=== PATIENT | female | born 1995 | race Caucasian/White ===

== ENCOUNTER → 2023-07-28 10:05 | Outpatient (REF) | payer BC, SELFPAY ==
[2023-07-28 11:40] LABS: % Basophils 1.1 % (0-2); % Eosinophils 2.9 % (0-6); % Immature Granulocytes 0.3 % (0-0.5); % Lymphocytes 37.7 % (20.5-51.1); % Monocytes 8.7 % (1.7-9.3); % Neutrophils 49.3 % (42.2-75.2); Absolute Basophils 0.1 10^3/uL (0-0.2); Absolute Eosinophils 0.3 10^3/uL (0-0.7); Absolute Lymphocytes 3.3 10^3/uL (1.2-3.4); Absolute Monocytes 0.8 10^3/uL (0.1-0.6); Absolute Neutrophils 4.3 10^3/uL (1.4-6.5); Hematocrit 40.6 % (37.0-47.0); Hemoglobin 14.3 g/dL (12.0-16.0); Mean Corp Hgb Conc. 35.2 g/dL (33.0-37.0); Mean Corpuscular Hgb 30.4 pg (27.0-31.0); Mean Corpuscular Volume 86.2 fL (81.0-99.0); Mean Platelet Volume 11.1 fL (7.4-10.4); Nucleated Red Blood Cells % 0 %; Platelet Count 217 10^3/uL (130-400); Red Blood Cell Count 4.71 10^6/uL (4.20-5.40); Red Cell Dist. Width 11.9 % (11.5-14.5); White Blood Cell Count 8.8 10^3/uL (4.8-10.8)
[2023-07-28 12:46] LABS: TSH Reflex To Free T4 1.19 uIU/ml (0.47-4.68)
[2023-07-28 12:47] LABS: ALT (SGPT) 28 U/L (0-35); AST (SGOT) 32 U/L (14-36); Albumin 4.7 g/dl (3.5-5.0); Alkaline Phosphatase 53 U/L (38-126); Blood Urea Nitrogen 14 mg/dl (7-17); Calcium 10.2 mg/dl (8.4-10.2); Carbon Dioxide 25 mmol/L (22-30); Chloride 105 mmol/L (98-107); Glucose 83 mg/dl (70-99); HDL Cholesterol 41 mg/dl; LDL Cholesterol, Calculated 130 mg/dl; Potassium 5.4 mmol/L (3.5-5.1); Sodium 141 mmol/L (135-145); Total Bilirubin 0.9 mg/dl (0.2-1.3); Total Cholesterol 189 mg/dl (50-199); Total Protein 7.8 g/dl (6.3-8.2); Triglyceride 91 mg/dl (10-149); Very Low Density Lipoprotein 18 mg/dl (0-30); eGFR > 60.00
== END ==
LOC: REG 10:05
PROVIDERS: ATTENDING PHYSICIAN Nurse Practitioner Adult Health
DX: Z00.00 Encounter for general adult medical examination without abnormal findings (principal); K20.0 Eosinophilic esophagitis; Z79.899 Other long term (current) drug therapy; Z13.29 Encounter for screening for other suspected endocrine disorder
CPT/HCPCS: 36415; 80053; 80061; 84443; 85025

== ENCOUNTER 2024-06-14 02:13 | Emergency (ER) | payer BC, SELFPAY ==
[2024-06-14 02:17] VITALS: BP 125/83
[2024-06-14 02:53] LABS: % Basophils 0.5 % (0-2); % Eosinophils 1.4 % (0-6); % Immature Granulocytes 0.5 % (0-0.5); % Lymphocytes 20.2 % (20.5-51.1); % Monocytes 9.5 % (1.7-9.3); % Neutrophils 67.9 % (42.2-75.2); Absolute Basophils 0.1 10^3/uL (0-0.2); Absolute Eosinophils 0.2 10^3/uL (0-0.7); Absolute Immature Granulocytes 0.1 10^3/uL (0-0.05); Absolute Lymphocytes 3.4 10^3/uL (1.2-3.4); Absolute Monocytes 1.6 10^3/uL (0.1-0.6); Absolute Neutrophils 11.5 10^3/uL (1.4-6.5); Hematocrit 37.1 % (37.0-47.0); Hemoglobin 13.4 g/dL (12.0-16.0); Mean Corp Hgb Conc. 36.1 g/dL (33.0-37.0); Mean Corpuscular Hgb 30.8 pg (27.0-31.0); Mean Corpuscular Volume 85.3 fL (81.0-99.0); Mean Platelet Volume 11.1 fL (7.4-10.4); Nucleated Red Blood Cells % 0 %; Platelet Count 181 10^3/uL (130-400); Red Blood Cell Count 4.35 10^6/uL (4.20-5.40); Red Cell Dist. Width 11.9 % (11.5-14.5)
[2024-06-14 03:07] LABS: HCG, Serum Qualitative Screen Negative
[2024-06-14 03:14] LABS: ALT (SGPT) 26 U/L (0-35); AST (SGOT) 28 U/L (14-36); Albumin 4.5 g/dl (3.5-5.0); Alkaline Phosphatase 53 U/L (38-126); Blood Urea Nitrogen 18 mg/dl (7-17); Calcium 9.7 mg/dl (8.4-10.2); Carbon Dioxide 25 mmol/L (22-30); Chloride 107 mmol/L (98-107); Glucose 96 mg/dl (70-99); Lipase 98 U/L (23-300); Potassium 4.3 mmol/L (3.5-5.1); Sodium 140 mmol/L (135-145); Total Protein 7.2 g/dl (6.3-8.2); eGFR > 60.00
[2024-06-14 03:15] VITALS: BMI 25.8
--- NOTE | 2024-06-14 03:23 | ED.GENMED ---
History of Present Illness
General
Chief Complaint: Abdominal Pain
Source: patient
Exam Limitations: none
Time Seen by Provider: 06/14/24 02:42
Nursing documentation reviewed up to this point in time: agreed with
History of Present Illness
History of Present Illness:
Pleasant 28-year-old female presents to the emergency department with right upper quadrant and epigastric abdominal pain. She states that the pain began this evening after eating dinner. She states it was nearly immediately after consuming chicken
and macaroni and cheese. Patient denies fever or chills. Patient tried multiple at home remedies including Pepto-Bismol and Gas-X without relief. Patient had nausea without vomiting. She denies diarrhea or constipation though she feels that her
stomach is bloated. She does have a history of eosinophilic esophagitis. States that this does not feel similar.
Past History
Past History
ED Past Medical History: Other (Eosinophilic esophagitis)
ED Past Surgical History: Tonsilectomy and Other (Esophageal dilatation)
Social History
Tobacco: Non-smoker
Alcohol: Other
Drug: None
Personal: Single
Living: with family
Employment: Employed
Family History
Family History: Other
Review of Systems
Review of Systems
Allergies reviewed?: Yes
All Other Systems: ROS reviewed and negative except as documented in HPI and ROS
Constitutional: Reports no symptoms
EENT: Reports no symptoms
Respiratory: Reports no symptoms
Cardiac: Reports no symptoms
ABD/GI: Reports abdominal pain and nausea; Denies vomiting, diarrhea, constipated, bloody stools or black stools
: Reports no symptoms
Musculoskeletal: Reports no symptoms
Skin: Reports no symptoms
Neurological: Reports no symptoms
Endocrine: Reports no symptoms
Hematologic/Lymphatic: Reports no symptoms
Psychiatric: Reports no symptoms
Phy Exam
General Physical Exam
General Presentation: well appearing and moderate distress
General Skin: warm and dry
General Habitus: normal
General Mental: alert
General Hydration: appears well hydrated
ENT Exam
ENT Exam: EOMI, pharynx normal, neck supple and normocephalic
Eye Exam
Eye Exam: PERRL, cornea clear and conjunctiva normal
Cardiovascular Exam
Cardiovascular Exam: regular rate/rhythm, no edema, no murmur and normal peripheral pulses
Pulmonary Exam
Pulmonary Exam: lungs clear, no respiratory distress, no rales, no crackles, no rhonchi, no stridor, no wheezing and no cough
Gastrointestinal Exam
Gastrointestinal Exam: normal bowel sounds, soft, no organomegaly, no pulsatile mass, non distended and guarding (Positive Lazcano sign. Negative McBurney's point tenderness.)
Neurological Exam
Neurological Exam: alert, oriented x3, no motor deficits and speech normal
Musculoskeletal Exam
Musculoskeletal Exam: full ROM and no edema
Skin Exam
Skin Exam: normal color, warm/dry, no rash and no petechia
Psychiatric Exam
Psychiatric Exam: normal mood/affect
Course
Orders/Labs/Results
Orders:
Orders
06/14/24 02:25
Test Result ONCE
06/14/24 02:31
Complete Blood Count/With Diff Urgent
Comprehensive Metabolic Panel Urgent
HCG, Serum Qualitative Screen Urgent
Lipase Urgent
06/14/24 02:42
US Abdomen Complete/Upper Urgent
Comment:
Reason For Exam: RUQ abd pain
06/14/24 03:43
HYDROmorphone [Dilaudid] 0.5 mg IV NOW STA
Ondansetron Injectable [Zofran] 4 mg IV NOW STA
06/14/24 04:20
CT Abd/pelvis W Iv Cont Urgent
Comment:
Reason For Exam: upper abd pain
06/14/24 05:25
LevoFLOXacin [Levaquin] 750 mg PO NOW STA
MetroNIDAZOLE [Flagyl] 500 mg PO NOW STA
06/14/24 05:46
Oxycodone/Acetaminophen [Percocet 5/325] 1 tablet PO NOW STA
Abnormal Lab Results
06/14/24
02:31
WBC 17.0 H 10^3/uL
(4.8-10.8)
MPV 11.1 H fL
(7.4-10.4)
Abs Immat Gran (auto) 0.1 H 10^3/uL
(0-0.05)
Absolute Neuts (auto) 11.5 H 10^3/uL
(1.4-6.5)
Absolute Monos (auto) 1.6 H 10^3/uL
(0.1-0.6)
Lymphocytes % 20.2 L %
(20.5-51.1)
Monocytes % 9.5 H %
(1.7-9.3)
BUN 18 H mg/dl
(7-17)
06/14/24 02:31
06/14/24 02:31
Vital Signs
Initial and Last Documented VS:
Initial Vital Signs
Temp Pulse Resp BP Pulse Ox
98.3 F 96 14 125/83 98
06/14/24 02:17 06/14/24 02:17 06/14/24 02:17 06/14/24 02:17 06/14/24 02:17
Last Documented Vital Signs
Temp Pulse Resp BP Pulse Ox
98.3 F 96 14 99/56 95
06/14/24 02:17 06/14/24 02:17 06/14/24 02:17 06/14/24 06:54 06/14/24 06:54
*Critical Care Note
Total Time (30-74mins, 75-104mins- exclusive of procedures): Not Applicable
Update Note
Update Note:
CT ABDOMEN AND PELVIS WITH IV CONTRAST
IMPRESSION
Moderate thickening and adjacent stranding of the ascending colon possible fecalith within a diverticulum along the medial aspect of the ascending colon and moderate diverticulitis sagittal image 19 coronal image 24 versus hyperenhancing mucosa of
colitis.. No pneumatosis or free air. No abscess or perforation. Status post appendectomy. Reactive ileocolic lymph nodes.
Incidental Findings:
IUD in the uterus appropriately located. Probable dominant follicle in the right ovary. Kidneys and gallbladder are unremarkable.
[Case discussed with Dr. Collazo at 5:25 AM Eastern time
ED Attending Note
-
Portions of this chart may have been created with voice recognition software.� Occasional wrong word or��sound alike� substitutions may have occurred due to the inherent limitations of voice recognition software.
Discharge Plan
Departure
Patient Disposition: Home (Routine Discharge)
Date of Disposition: 06/14/24
Time of Disposition: 06:09
Patient with high blood pressure during this ER visit?: Yes
Condition: Good
Discharge Problem:
Diverticulitis
Instructions: Clear Liquid Diet, Diverticulitis - Discharge instructions, BLOOD PRESSURE
Prescriptions:
New
levofloxacin 750 mg tablet
750 mg PO DAILY 10 Days Qty: 10 0RF
metronidazole 500 mg tablet
500 mg PO TID Qty: 30 0RF
oxycodone-acetaminophen [Percocet] 5-325 mg tablet
1 tab PO Q6HPRN PRN (Reason: pain) Qty: 10 0RF
No Action
albuterol sulfate 1 PUFF HFA aerosol inhaler
1 puff inhalation R Q4HPRN PRN (Reason: sob)
valacyclovir 1 gram Tablet
2,000 mg PO BIDPRN PRN (Reason: cold sores)
fluticasone propionate 220 mcg/actuation Hfa Aerosol Inhaler
4 puff INHALATION R BID
loteprednol etabonate 0.5 % Drops,Suspension
1 drp BOTH EYES BID
Referrals:
D'Pio,Perla, LAP MACHINE OPERATOR [Family Provider] -
Activity Restrictions/Additional Instructions:
It was a pleasure meeting you and taking part in your care. We hope for your continued healing and wellness.
Please read discharge instructions in their entirety. However, they are for general education and may not describe your exact diagnosis at discharge. Information on your ER visit and medical conditions were discussed with you along with appropriate
follow up information...
If indicated, please take your medications as instructed and indicated on discharge paperwork.
Please schedule a follow up appointment as directed. Call to schedule an appointment
Please return to the emergency department with ANY change in, persisting, or worsening of symptoms. If any of your symptoms do not improve, or persist, or become more severe within 6-12 hours, please return to the emergency department for further
care.
Please return to the emergency department if you develop a headache, neck pain/stiffness, fever greater than 100.4F, chest pain, shortness of breath, persistent nausea, vomiting, slurred speech, difficulty walking, numbness/tingling, weakness, signs
of infection or any other symptoms that are worrisome to you.
If you have any questions or concerns please do not hesitate to call the Hospital at or E-mail me directly at [email or web address]
Interventions
Interventions:
*Risk Screen - Suicide Last Done: 06/14/24 02:17
*General Assessment Last Done: 06/14/24 03:15
*Neglect/Abuse Screening Last Done: 06/14/24 03:15
*ED- Fall Risk Assessment Last Done: 06/14/24 03:15
*ED COVID-19 Vaccine History Last Done: 06/14/24 03:15
*Nursing Disposition Last Done: 06/14/24 07:05
RH-Vftwuo-Yoetdfoeho Assessment Last Done: 06/14/24 03:15
Discharge Date and Time
Discharge Date/Time: 06/14/24 07:21
Print Language: MAURITANIAN
[2024-06-14] MEDS: DILAUDID 0.5 MG IV (03:58)
[2024-06-14] MEDS: ZOFRAN 4 MG IV (03:58)
[2024-06-14] MEDS: FLAGYL 500 MG PO (05:59)
[2024-06-14] MEDS: PERCOCET 5/325 1 TABLET PO (06:00)
[2024-06-14] MEDS: LEVAQUIN 750 MG PO (06:00)
[2024-06-14 06:54] VITALS: BP 99/56
== END 2024-06-14 07:21 | disposition home or self-care (01) ==
LOC: EMR 02:13
PROVIDERS: EMERGENCY PHYSICIAN Student in an Organized Health Care Education/Training Program; FAMILY PHYSICIAN Nurse Practitioner Adult Health
DX: K57.32 Diverticulitis of large intestine without perforation or abscess without bleeding (principal); Z90.49 Acquired absence of other specified parts of digestive tract
CPT/HCPCS: 99284; 96374; 96375; 74177; 76700; 80053; 83690; 84703; 85025; Q9967

== ENCOUNTER 2024-06-14 22:27 | Inpatient (IN) | payer BC, SELFPAY ==
[2024-06-14 16:02] VITALS: BP 108/75
--- NOTE | 2024-06-14 18:06 | ED.GENMED ---
History of Present Illness
General
Chief Complaint: Abdominal Symptoms
Source: patient
Exam Limitations: none
Time Seen by Provider: 06/14/24 17:16
Nursing documentation reviewed up to this point in time: agreed with
History of Present Illness
History of Present Illness:
28-year-old female with a history of eosinophilic esophagitis followed by [facility]
Presented earlier this morning for 2 days of epigastric/left upper quadrant pain that was worsening, pt had nausea but no vomiting, no diarrhea, + chills
wbc 17, ct shows pronouced bowel thickening and mesenteric inflammatory changes adjacent to the hepatic flexure; may be diveritcultiis vs inflammatory colitis
pt went home with levaquin and flagyl and percocet
pt took a percocet but says her pain is not tolerable
she tried drinking some fluids and vomited
she doesn't feel like she can go home
pt has not had any new fevers, diarrhea, urinary symptoms
no recent antibiotics
no h/o IBD.
Past History
Past History
ED Past Medical History: Other (Eosinophilic esophagitis)
ED Past Surgical History: Tonsilectomy and Other (Esophageal dilatation)
Social History
Tobacco: Non-smoker
Alcohol: Other
Drug: None
Personal: Single
Living: with family
Employment: Employed
Family History
Family History: Other
Review of Systems
Review of Systems
Allergies reviewed?: Yes
All Other Systems: Not applicable
Phy Exam
Physical Exam
Physical Exam:
GENERAL: Alert , in no apparent distress
EYE: pupils equal and reactive
NECK: Supple
ENT: o/p clr, mmm.
CARDIAC: Regular rate and rhythm .
LUNGS: Clear breath sounds bilaterally, no acute respiratory distress, no wheezes/rales/rhonchi
ABDOMEN: Soft, moderate upper and left upper quadrant abdominal tenderness, no r/g, no cvat, normal bowel sounds
NEUROLOGICAL: Alert and oriented, no focal neuro deficits
SKIN: Warm and dry, skin intact.
MUSCULOSKELETAL: No edema, well perfused. neg rhoda's sign
PSYCH: Normal and appropriate interaction.
Sepsis
Sepsis Screening
Sepsis Assessment: Sepsis
Sepsis Screen
Sepsis Screen: Sepsis
Date: 06/14/24
Time: 21:32
Course
Orders/Labs/Results
Orders:
Orders
06/14/24 18:04
0.9% Sodium Chloride 1000 ml [Nss] 1,000 ml IV BOLUS
Morphine Sulfate 4 mg IV NOW STA
Ondansetron Injectable [Zofran] 4 mg IV NOW STA
06/14/24 18:31
Complete Blood Count/With Diff Urgent
Comprehensive Metabolic Panel Urgent
Lactic Acid Urgent
06/14/24 21:09
Morphine Sulfate 4 mg IV NOW STA
06/14/24 21:12
0.9% Sodium Chloride 1000 ml [Nss] 1,000 ml IV BOLUS
06/14/24 22:00
Flush (0.9% Sodium Chloride) [Flush (Nss)] See Dose Instructions IV PER PROTOCOL
Abnormal Lab Results
06/14/24
18:31
WBC 15.3 H 10^3/uL
(4.8-10.8)
Hct 36.7 L %
(37.0-47.0)
MPV 10.8 H fL
(7.4-10.4)
Abs Immat Gran (auto) 0.1 H 10^3/uL
(0-0.05)
Absolute Neuts (auto) 12.4 H 10^3/uL
(1.4-6.5)
Absolute Monos (auto) 1.2 H 10^3/uL
(0.1-0.6)
Neutrophils % 80.9 H %
(42.2-75.2)
Lymphocytes % 10.6 L %
(20.5-51.1)
Total Bilirubin 1.7 H mg/dl
(0.2-1.3)
06/14/24 18:31
06/14/24 18:31
Vital Signs
Initial and Last Documented VS:
Initial Vital Signs
Temp Pulse Resp BP Pulse Ox
36.8 C 98 18 108/75 97
06/14/24 16:02 06/14/24 16:02 06/14/24 16:02 06/14/24 16:02 06/14/24 16:02
Last Documented Vital Signs
Temp Pulse Resp BP Pulse Ox
36.8 C 98 18 109/72 94
06/14/24 16:02 06/14/24 16:02 06/14/24 16:02 06/14/24 19:00 06/14/24 19:00
MDM/Problems Addressed
Differential Diagnosis Includes:
diverticultis, intractable pain, colitis
MDM/Problems Addressed:
28 y/o F
h/o esosinophilic esophagitis
here with upper abd pain x 2 days, nausea, lack of appetite
seen overnight with wbc 17, ct showing focal area of pronounced bowel thickening in the upper abdomen;
could be divertic
pt went home after iv dilaudid, oral oxycodone and was givne levaquin and flagyl
she says the pain is not toelrable
pt has mild to mod upper abd tenderness
she did vomit once prior to arrival
will repat labs, including lactic and give IV pain meds
anticipate admission
2100 patient is requesting more pain medication, she was admitted to the hospitalist service
*Critical Care Note
Total Time (30-74mins, 75-104mins- exclusive of procedures): Not Applicable
ED Attending Note
-
Portions of this chart may have been created with voice recognition software.� Occasional wrong word or��sound alike� substitutions may have occurred due to the inherent limitations of voice recognition software.
Discharge Plan
Departure
Patient Disposition: Admit
Date of Disposition: 06/14/24
Time of Disposition: 20:19
Admit to: Med/Surg
Presentation/result/management discussed w/ accepting MD/DO: Hospitalist
Condition: Fair
Covid-19: Not Applicable
Discharge Problem:
Colitis, Intractable abdominal pain
Prescriptions:
No Action
albuterol sulfate 1 PUFF HFA aerosol inhaler
1 puff inhalation R Q4HPRN PRN (Reason: sob)
levofloxacin 750 mg tablet
750 mg PO DAILY 10 Days Qty: 10 0RF
metronidazole 500 mg tablet
500 mg PO TID Qty: 30 0RF
oxycodone-acetaminophen [Percocet] 5-325 mg tablet
1 tab PO Q6HPRN PRN (Reason: pain) Qty: 10 0RF
valacyclovir 1 gram Tablet
2,000 mg PO BIDPRN PRN (Reason: cold sores)
fluticasone propionate 220 mcg/actuation Hfa Aerosol Inhaler
4 puff INHALATION R BID
loteprednol etabonate 0.5 % Drops,Suspension
1 drp BOTH EYES BID
Referrals:
UNKNOWN - PT DOES,NOT KNOW [Unknown Provider] -
Interventions
Interventions:
*Risk Screen - Suicide Last Done: 06/14/24 16:02
*General Assessment Last Done: 06/14/24 16:50
*Neglect/Abuse Screening Last Done: 06/14/24 16:02
*ED- Fall Risk Assessment Last Done: 06/14/24 16:50
*ED COVID-19 Vaccine History Last Done: 06/14/24 16:02
NL-Dgyvjh-Hdiibppkyw Assessment Last Done: 06/14/24 16:50
Discharge Date and Time
Print Language: SLOVENIAN
[2024-06-14 18:33] VITALS: BP 110/79
[2024-06-14 18:36] VITALS: BMI 25.8
[2024-06-14] MEDS: MORPHINE SULFATE 4 MG IV ×2 (18:37→21:20)
[2024-06-14] MEDS: ZOFRAN 4 MG IV (18:38)
[2024-06-14] MEDS: NSS 1000 IV ×2 (18:38→21:21)
[2024-06-14 18:53] LABS: % Basophils 0.6 % (0-2); % Eosinophils 0.1 % (0-6); % Immature Granulocytes 0.3 % (0-0.5); % Lymphocytes 10.6 % (20.5-51.1); % Monocytes 7.5 % (1.7-9.3); % Neutrophils 80.9 % (42.2-75.2); Absolute Basophils 0.1 10^3/uL (0-0.2); Absolute Immature Granulocytes 0.1 10^3/uL (0-0.05); Absolute Lymphocytes 1.6 10^3/uL (1.2-3.4); Absolute Monocytes 1.2 10^3/uL (0.1-0.6); Absolute Neutrophils 12.4 10^3/uL (1.4-6.5); Hematocrit 36.7 % (37.0-47.0); Hemoglobin 13.2 g/dL (12.0-16.0); Mean Corpuscular Hgb 30.6 pg (27.0-31.0); Mean Platelet Volume 10.8 fL (7.4-10.4); Nucleated Red Blood Cells % 0 %; Platelet Count 172 10^3/uL (130-400); Red Blood Cell Count 4.32 10^6/uL (4.20-5.40); Red Cell Dist. Width 11.9 % (11.5-14.5); White Blood Cell Count 15.3 10^3/uL (4.8-10.8)
[2024-06-14 19:00] VITALS: BP 109/72
[2024-06-14 19:06] LABS: Lactic Acid 0.8 mmol/L (0.7-2.0)
[2024-06-14 19:11] LABS: ALT (SGPT) 26 U/L (0-35); AST (SGOT) 24 U/L (14-36); Albumin 4.4 g/dl (3.5-5.0); Alkaline Phosphatase 55 U/L (38-126); Blood Urea Nitrogen 10 mg/dl (7-17); Calcium 9.9 mg/dl (8.4-10.2); Carbon Dioxide 25 mmol/L (22-30); Chloride 101 mmol/L (98-107); Estimated Creatinine Clearance 118 ml/min; Glucose 84 mg/dl (70-99); Potassium 4.3 mmol/L (3.5-5.1); Sodium 136 mmol/L (135-145); Total Bilirubin 1.7 mg/dl (0.2-1.3); Total Protein 7.3 g/dl (6.3-8.2); eGFR > 60.00
[2024-06-14 20:00] VITALS: BP 108/68
[2024-06-14] MEDS: FLUSH (NSS) 1 FLUSH IV (21:21)
--- NOTE | 2024-06-14 21:48 | HPS.HSE ---
Family Physician
-
Family Physician: VINEET Rivera
Chief Complaint
-
Abdominal pain
History of Present Illness
This is a 28-year-old female with past medical history significant for eosinophilic esophagitis, esophageal stricture status post dilation, presenting to the emergency department with ongoing abdominal pain after initial evaluation in the ED at
around 2 AM today, found to have likely diverticulitis and discharged on Levaquin and Flagyl.
Patient reported that she had had about 1 day of symptoms prior to coming to the emergency department. She reports acute onset of epigastric abdominal bloating and then pain. She then had a meal in the evening when she developed severe bloating
and pain. She reported 1 episode of vomiting. She denies any diarrhea. She denies having any fevers or chills. She reports she is unable to tolerate p.o. due to the pain.
When she came to the emergency department yesterday she was diagnosed with diverticulitis and mesenteric inflammation adjacent to the hepatic flexure. She was started on Levaquin and Flagyl and discharge. However she returns with intractable pain.
She has had no fevers at home. She reports no vomiting. She denies any abdominal bloating at this time.
In the emergency department she was afebrile, blood pressure was 109/71 with a pulse of 98 and she was satting 98% on room air. He had a white count of 15.3 which is increased. Hemoglobin and platelet normal. Electrolytes BUN/creatinine were
normal.
The CT of the abdomen as reported from yesterday shows pronounced bowel wall thickening and mesenteric inflammatory change adjacent to the hepatic flexure. Possible inflamed diverticulum in the region. Findings most likely represent acute
uncomplicated diverticulitis, differential diagnosis includes infectious and inflammatory colitis.
2. No evidence of intestinal obstruction, nephrolithiasis, hydronephrosis, cholecystitis, or abscess formation, esophageal stricture status post dilation.
Medical History
Past Medical History
Past Medical History: Reports Psychiatric (Panic attacks,) and Other (Eosinophilic esophagitis, laryngeal dyskinesia, neurocardiogenic syncope)
Past Surgical History: Reports Appendectomy and Tonsilectomy
Social History
Tobacco: Non-smoker
Alcohol: None
Drug: None
Family History
Family History: Not pertinent
Allergies / Home Medications
Allergies reflects when Allergies were last updated in [employer].
Home Medications with original date entered in [employer]
Allergy/Medication List:
Allergies
Allergy/AdvReac Type Severity Reaction Status Date / Time
levalbuterol HCl Allergy tachycardia Verified 06/14/24 16:06
[From [facility]]
Home Medications
albuterol sulfate 90 mcg/actuation aerosol inhaler 1 puff inhalation R Q4HPRN PRN sob 04/26/21
fluticasone propionate 220 mcg/actuation HFA aerosol inhaler 4 puff inhalation R BID 06/14/24
levofloxacin 750 mg tablet 750 mg PO DAILY 10 days #10 tabs 06/14/24
loteprednol etabonate 0.5 % eye drops,suspension 1 drp BOTH EYES BID 06/14/24
metronidazole 500 mg tablet 500 mg PO TID #30 tabs 06/14/24
oxycodone-acetaminophen 5 mg-325 mg tablet (Percocet) 1 tab PO Q6HPRN PRN pain #10 tabs 06/14/24
valacyclovir 1 gram tablet 2,000 mg PO BIDPRN PRN cold sores 06/14/24
Review of Systems
-
History Source: Patient
Constitutional: Reports No Symptoms
EENT: Reports No Symptoms
Respiratory: Reports No Symptoms
Cardiac: Reports No Symptoms
Abdomen/GI: Reports Abdominal Pain
: Reports No Symptoms
Musculoskeletal: Reports No Symptoms
Skin: Reports No Symptoms
Neurological: Reports No Symptoms
Endocrine: Reports No Symptoms
Hematologic/Lymphatic: Reports No Symptoms
Psych: Reports No Symptoms
Physical Exam
Vital Signs
Vital Signs
Temp Pulse Resp BP Pulse Ox
98.3 F 98 18 109/72 94
06/14/24 16:02 06/14/24 16:02 06/14/24 16:02 06/14/24 19:00 06/14/24 19:00
Physical Exam
General: Well Developed, Well Nourished and Pain
HEENT: NormoCephalic, Anicteric and Moist mucous membranes
Respiratory: Clear
Cardiac: S1/S2 and Regular Rhythm
Breast: Deferred by me
GI: Soft, Non Distended, Normal Bowel Sounds and Tender
Rectal: Deferred by Provider
Genito-urinary: Deferred by me
Musculoskeletal: No Clubbing, No Cyanosis and No Edema
Skin: Warm
Neuro: AO x 3 and Nonfocal/grossly intact
Hematologic/Lymphatic: No Lymphadenopathy
Psych: Calm
Laboratory Results
-
06/14/24 18:31
06/14/24 18:31
Laboratory Results
Lactic Acid 0.8 mmol/L (0.7-2.0) 06/14/24 18:31
Total Bilirubin 1.7 mg/dl (0.2-1.3) H 06/14/24 18:31
AST 24 U/L (14-36) 06/14/24 18:31
ALT 26 U/L (0-35) 06/14/24 18:31
Alkaline Phosphatase 55 U/L (38-126) 06/14/24 18:31
Data Reviewed
-
CT Scan: Report Reviewed by me
Lab Data: Labs Reviewed by me
Old Records: Reviewed
Impression/Plan
-
IMPRESSION:
28-year-old female with abdominal pain found to have diverticulitis at which she is apparently at the hepatic flexure with mesenteric inflammation. Treated with oral Levaquin and metronidazole and return to the emergency department with intractable
abdominal pain. She is hemodynamically stable and afebrile. She shows no signs of small bowel obstruction. No leukocytosis noted. She has been admitted for intractable abdominal pain and continued antibiotics parenterally.
PLAN:
Acute diverticulitis / colitis
- admit to [facility]
- clear liquid diet for now
- IV levaquin and flagyl for now
- pain control and antiemetics
- IV fluids
- DVT PPX w/ lovenox sq
Code status - Full code
[2024-06-14] MEDS: FLAGYL 500 MG 100 IV (22:24)
[2024-06-14 23:22] VITALS: BP 101/59; BMI 25.7
[2024-06-14] MEDS: LR 1000 IV (23:29)
--- NOTE | 2024-06-14 23:53 | PTCARENOTE ---
Pt admit from ED via stretcher. Ambulated into room independently. Assessment as charted.
[2024-06-15] MEDS: ZOFRAN 4 MG IV ×2 (00:25→15:29)
[2024-06-15] MEDS: FLAGYL 500 MG 100 IV ×3 (05:14→22:03)
[2024-06-15] MEDS: TORADOL 10 MG IV ×3 (05:40→19:43)
[2024-06-15 06:34] LABS: Hematocrit 32.2 % (37.0-47.0); Hemoglobin 11.5 g/dL (12.0-16.0); Mean Corp Hgb Conc. 35.7 g/dL (33.0-37.0); Mean Corpuscular Hgb 31.3 pg (27.0-31.0); Mean Corpuscular Volume 87.5 fL (81.0-99.0); Mean Platelet Volume 11.6 fL (7.4-10.4); Platelet Count 152 10^3/uL (130-400); Red Blood Cell Count 3.68 10^6/uL (4.20-5.40); Red Cell Dist. Width 11.9 % (11.5-14.5); White Blood Cell Count 10.6 10^3/uL (4.8-10.8)
[2024-06-15 07:00] VITALS: BP 99/57
[2024-06-15 07:01] LABS: Blood Urea Nitrogen 6 mg/dl (7-17); Calcium 8.6 mg/dl (8.4-10.2); Carbon Dioxide 27 mmol/L (22-30); Chloride 107 mmol/L (98-107); Estimated Creatinine Clearance 118 ml/min; Glucose 71 mg/dl (70-99); Potassium 3.8 mmol/L (3.5-5.1); Sodium 140 mmol/L (135-145); eGFR > 60.00
[2024-06-15] MEDS: FLOVENT 220 MCG INHALER 4 PUFF INH ×2 (07:29→19:42)
[2024-06-15] MEDS: LEVAQUIN 150 IV (08:19)
--- NOTE | 2024-06-15 10:23 | W.PN.HOSP.TC ---
Today's Communication/Plan
-
see plan
Assessment / Plan
Assessment / Plan
28-year-old female with abdominal pain found to have diverticulitis at which she is apparently at the hepatic flexure with mesenteric inflammation. Treated with oral Levaquin and metronidazole and return to the emergency department with intractable
abdominal pain. She is hemodynamically stable and afebrile. She shows no signs of small bowel obstruction. No leukocytosis noted. She has been admitted for intractable abdominal pain and continued antibiotics parenterally.
Patient seen and examined with MICKEY Diallo present at bedside for the entirety of the interview and physical exam
Gen: NAD, AAOx3.
Eyes: EOMI, PERRLA, no scleral icterus.
Neck: supple.
CV: RRR, +S1/S2, no m/r/g.
Resp: CTAB, no rales, wheezes, or rhonchi.
Abd: +BS, soft, right upper quadrant tenderness to palpation without guarding, ND
Skin: No rashes.
Neuro: CN 2-12 intact, non-focal.
Psych: Normal mood and affect.
Abd U/S:
1. No evidence of cholelithiasis, acute cholecystitis, or biliary ductal dilation.
2. No sonographic abnormalities demonstrated.
CT A/P:
1. Pronounced bowel wall thickening and mesenteric inflammatory change adjacent to the hepatic flexure. Possible inflamed diverticulum in the region. Findings most likely represent acute uncomplicated diverticulitis, differential diagnosis includes
infectious and inflammatory colitis.
2. No evidence of intestinal obstruction, nephrolithiasis, hydronephrosis, cholecystitis, or abscess formation.
Acute diverticulitis/colitis:
-clears today
-Leukocytosis has resolved
-cont levaquin/Flagyl
-s/p IVFs on admission
-pain control and antiemetics
FULL/Lovenox
Anticipated Discharge: 24 - 48 hours
Subjective/Interval History
-
Date of Service: June 15, 2024
Still with right upper quadrant abdominal pain. Denies vomiting. No bowel movements yet.
Objective Data
-
Labs:
Laboratory Results
06/15/24
05:49
WBC 10.6
Hgb 11.5 L
Hct 32.2 L
Plt Count 152
Sodium 140
Potassium 3.8
Chloride 107
Carbon Dioxide 27
BUN 6 L
Creatinine 0.6
Glucose 71
Calcium 8.6
Vital Signs:
Vital Signs
Temp Pulse Resp BP Pulse Ox
98.0 F 80 14 99/57 98
06/15/24 07:00 06/15/24 07:38 06/15/24 07:38 06/15/24 07:00 06/15/24 07:38
I&O
06/14/24 06/15/24 06/16/24
06:59 06:59 06:59
Intake Total 0 / 0
Balance 0 / 0
[2024-06-15] MEDS: MORPHINE SULFATE 2 MG IV ×2 (10:48→18:24)
[2024-06-15 11:00] VITALS: BP 108/68
--- NOTE | 2024-06-15 13:37 | CM ---
advertising production manager reviewed patient's chart and met with patient and patient is independent with adl's and ambulation, no dme, patient states she lives with her fiancee and daughter in a one story home no steps to enter, patient is independent with adl's
and ambulation, no dme, patient drives, home when stable, no needs.
PCP: Yamileth Khalil
Pharmacy: [facility] in [place].
Plan; Home when stable, no needs.
[2024-06-15 15:00] VITALS: BP 102/65
[2024-06-15] MEDS: COMPAZINE 10 MG IV (19:23)
[2024-06-15 23:42] VITALS: BP 101/52
[2024-06-16] MEDS: FLAGYL 500 MG 100 IV ×3 (05:15→21:25)
[2024-06-16] MEDS: TORADOL 10 MG IV ×3 (05:18→17:28)
[2024-06-16 07:05] VITALS: BP 100/51
[2024-06-16] MEDS: MORPHINE SULFATE 2 MG IV ×3 (07:23→21:24)
[2024-06-16] MEDS: LEVAQUIN 150 IV (07:23)
[2024-06-16] MEDS: FLOVENT 220 MCG INHALER 4 PUFF INH ×2 (07:37→20:12)
--- NOTE | 2024-06-16 11:00 | W.PN.HOSP.TC ---
Today's Communication/Plan
-
see bold
Assessment / Plan
Assessment / Plan
28-year-old female with abdominal pain found to have diverticulitis at which she is apparently at the hepatic flexure with mesenteric inflammation. Treated with oral Levaquin and metronidazole and return to the emergency department with intractable
abdominal pain. She is hemodynamically stable and afebrile. She shows no signs of small bowel obstruction. No leukocytosis noted. She has been admitted for intractable abdominal pain and continued antibiotics parenterally.
Patient seen and examined with MICKEY Ardon present at bedside for the entirety of the interview and physical exam:
Gen: NAD, AAOx3.
Eyes: EOMI, PERRLA, no scleral icterus.
Neck: supple.
CV: RRR, +S1/S2, no m/r/g.
Resp: CTAB, no rales, wheezes, or rhonchi.
Abd: +BS, soft, NT to light palpation, ND
Skin: No rashes.
Neuro: CN 2-12 intact, non-focal.
Psych: Normal mood and affect.
Abd U/S:
1. No evidence of cholelithiasis, acute cholecystitis, or biliary ductal dilation.
2. No sonographic abnormalities demonstrated.
CT A/P:
1. Pronounced bowel wall thickening and mesenteric inflammatory change adjacent to the hepatic flexure. Possible inflamed diverticulum in the region. Findings most likely represent acute uncomplicated diverticulitis, differential diagnosis includes
infectious and inflammatory colitis.
2. No evidence of intestinal obstruction, nephrolithiasis, hydronephrosis, cholecystitis, or abscess formation.
Acute diverticulitis/colitis:
-clears
-Leukocytosis has resolved
-cont levaquin/Flagyl
-s/p IVFs on admission, restart IVFs with D5 1/2NS
-pain control and antiemetics
-If pain is not improving tomorrow we will need to repeat CT A/P
FULL/Lovenox
Anticipated Discharge: > 48 hours
Subjective/Interval History
-
Date of Service: June 16, 2024
Objective Data
-
Vital Signs:
Vital Signs
Temp Pulse Resp BP Pulse Ox
98.2 F 90 14 100/51 99
06/16/24 07:05 06/16/24 07:40 06/16/24 07:40 06/16/24 07:05 06/16/24 07:40
I&O
06/15/24 06/16/24 06/17/24
06:59 06:59 06:59
Intake Total 0 / 0 1440 / 1440
Balance 0 / 0 1440 / 1440
[2024-06-16] MEDS: D5/0.45%NACL 1000 IV ×2 (11:19→21:25)
[2024-06-16 11:47] LABS: Hematocrit 31.8 % (37.0-47.0); Hemoglobin 11.5 g/dL (12.0-16.0); Mean Corp Hgb Conc. 36.2 g/dL (33.0-37.0); Mean Corpuscular Hgb 31.3 pg (27.0-31.0); Mean Corpuscular Volume 86.6 fL (81.0-99.0); Mean Platelet Volume 11.1 fL (7.4-10.4); Platelet Count 144 10^3/uL (130-400); Red Blood Cell Count 3.67 10^6/uL (4.20-5.40); Red Cell Dist. Width 11.7 % (11.5-14.5); White Blood Cell Count 7.1 10^3/uL (4.8-10.8)
[2024-06-16 11:57] LABS: Blood Urea Nitrogen 8 mg/dl (7-17); Calcium 8.7 mg/dl (8.4-10.2); Carbon Dioxide 26 mmol/L (22-30); Chloride 108 mmol/L (98-107); Estimated Creatinine Clearance 118 ml/min; Glucose 81 mg/dl (70-99); Sodium 139 mmol/L (135-145); eGFR > 60.00
[2024-06-16] MEDS: ZOFRAN 4 MG IV (14:41)
[2024-06-16 15:05] VITALS: BP 101/63
[2024-06-16 23:50] VITALS: BP 107/71
[2024-06-17] MEDS: TORADOL 10 MG IV ×3 (00:02→22:20)
[2024-06-17] MEDS: FLAGYL 500 MG 100 IV ×3 (05:23→21:43)
[2024-06-17] MEDS: MORPHINE SULFATE 2 MG IV ×2 (05:31→09:55)
[2024-06-17] MEDS: D5/0.45%NACL 1000 IV ×2 (06:28→17:37)
[2024-06-17 07:00] VITALS: BP 112/80
[2024-06-17 07:36] LABS: Hematocrit 31.1 % (37.0-47.0); Hemoglobin 11.1 g/dL (12.0-16.0); Mean Corp Hgb Conc. 35.7 g/dL (33.0-37.0); Mean Corpuscular Volume 86.9 fL (81.0-99.0); Mean Platelet Volume 11.2 fL (7.4-10.4); Platelet Count 162 10^3/uL (130-400); Red Blood Cell Count 3.58 10^6/uL (4.20-5.40); Red Cell Dist. Width 11.6 % (11.5-14.5); White Blood Cell Count 7.4 10^3/uL (4.8-10.8)
--- NOTE | 2024-06-17 07:49 | W.PN.HOSP.TC ---
Today's Communication/Plan
-
see bold
Assessment / Plan
Assessment / Plan
28-year-old female with abdominal pain found to have diverticulitis at which she is apparently at the hepatic flexure with mesenteric inflammation. Treated with oral Levaquin and metronidazole and return to the emergency department with intractable
abdominal pain. She is hemodynamically stable and afebrile. She shows no signs of small bowel obstruction. No leukocytosis noted. She has been admitted for intractable abdominal pain and continued antibiotics parenterally.
Patient seen and examined with pt's mother present at bedside for the entirety of the interview and physical exam:
Gen: NAD, AAOx3.
Eyes: EOMI, PERRLA, no scleral icterus.
Neck: supple.
CV: remains RRR, +S1/S2, no m/r/g.
Resp: remains CTAB, no rales, wheezes, or rhonchi.
Abd: remains +BS, soft, NT to light palpation, ND
Skin: No rashes.
Neuro: CN 2-12 intact, non-focal.
Psych: Normal mood and affect.
Abd U/S:
1. No evidence of cholelithiasis, acute cholecystitis, or biliary ductal dilation.
2. No sonographic abnormalities demonstrated.
CT A/P:
1. Pronounced bowel wall thickening and mesenteric inflammatory change adjacent to the hepatic flexure. Possible inflamed diverticulum in the region. Findings most likely represent acute uncomplicated diverticulitis, differential diagnosis includes
infectious and inflammatory colitis.
2. No evidence of intestinal obstruction, nephrolithiasis, hydronephrosis, cholecystitis, or abscess formation.
Acute diverticulitis/colitis:
-clears
-Leukocytosis has resolved
-cont levaquin/Flagyl
-cont D5 1/2NS
-pain control and antiemetics
-repeat CT A/P with PO and IV contrast
-CRS saw in c/s this AM, case discussed with Dr. Mesa
FULL/Lovenox
Anticipated Discharge: 24 - 48 hours
Subjective/Interval History
-
Date of Service: June 17, 2024
Still c/o persistent abd pain.
Objective Data
-
Labs:
Laboratory Results
06/17/24
07:02
WBC 7.4
Hgb 11.1 L
Hct 31.1 L
Plt Count 162
Sodium Pending
Potassium Pending
Chloride Pending
Carbon Dioxide Pending
BUN Pending
Creatinine Pending
Glucose Pending
Calcium Pending
Vital Signs:
Vital Signs
Temp Pulse Resp BP Pulse Ox
98.3 F 70 20 107/71 98
06/16/24 23:50 06/16/24 23:50 06/16/24 23:50 06/16/24 23:50 06/16/24 23:50
I&O
06/16/24 06/17/24 06/18/24
06:59 06:59 06:59
Intake Total 1440 / 1440 3629
Balance 1440 / 1440 3629
[2024-06-17] MEDS: FLOVENT 220 MCG INHALER 4 PUFF INH ×2 (07:50→19:25)
[2024-06-17] MEDS: LEVAQUIN 150 IV (08:25)
[2024-06-17 08:38] LABS: Blood Urea Nitrogen 4 mg/dl (7-17); Calcium 8.3 mg/dl (8.4-10.2); Carbon Dioxide 25 mmol/L (22-30); Chloride 108 mmol/L (98-107); Estimated Creatinine Clearance 118 ml/min; Glucose 86 mg/dl (70-99); Potassium 3.6 mmol/L (3.5-5.1); Sodium 140 mmol/L (135-145); eGFR > 60.00
[2024-06-17] MEDS: OMNIPAQUE 50 ML PO (08:43)
--- NOTE | 2024-06-17 11:11 | CON.CRS ---
Consultation
-
Date/Time Consultation Requested: 06/17/2024, 08:15
Date/Time Consultation Performed: 06/17/2024, 09:20
Requesting Provider: Aaron Mosqueda MD
Performing Provider: Denis Mesa MD
Reason for Consultation: colitis
Medical History
-
Chief Complaint: abdominal pain
History of Present Illness:
28-year-old female, with a past medical history of panic attacks, eosinophil esophagitis, and neurocardiac syncope, presents to [facility] complaining of abdominal pain. She had about a day of symptoms prior to coming to the emergency
department. She had noticed upper abdominal pain and bloating that came and went with meals. She had 1 episode of vomiting at home. She denied fevers or chills. She underwent a CT of the abdomen and pelvis which showed pronounced bowel wall
thickening and mesenteric inflammatory change adjacent to the hepatic flexure. Possible inflamed diverticulum in the region. Findings most likely represent acute uncomplicated diverticulitis. Differential diagnoses include infectious and
inflammatory colitis. There is no evidence of internal obstruction or abscess formation. She was started on Levaquin and Flagyl. Her WBC initially was 17.0 but is 7.4 today. She has remained afebrile. Vital signs have been normal.
She states she had an appendectomy back in 2020 at [facility]. She has never undergone a colonoscopy. She has never had pain like this before nor has she had diverticulitis. Her last bowel movement was 3 days ago and was small in nature.
Normally she is pretty regular otherwise. She is currently nauseous. She still feels bloated in the upper abdomen and is ditch tender with no real improvement in the past 24 hours. Given this, we have been consulted for further surgical opinion.
Past Medical History
Past Medical History: Other (Panic attacks, eosinophilic esophagitis, laryngeal dyskinesia, neurocardiogenic syncope)
Past Surgical History: Appendectomy and Tonsilectomy
Social History
Tobacco: Non-Smoker
Alcohol: None
Drug: None
Family History
Family History: Reviewed & Not Pertinent
Allergies / Home Medications
Allergy/AdvReac Type Severity Reaction Status Date / Time
levalbuterol HCl Allergy tachycardia Verified 06/14/24 16:06
[From Xopenex]
�Medication �Instructions �Recorded �Confirmed �Type
albuterol sulfate 90 mcg/actuation 1 puff inhalation R Q4HPRN PRN sob 04/26/21 06/14/24 History
aerosol inhaler
fluticasone propionate 220 4 puff inhalation R BID 06/14/24 06/14/24 History
mcg/actuation HFA aerosol inhaler
levofloxacin 750 mg tablet 750 mg PO DAILY 10 days #10 tabs 06/14/24 06/14/24 Rx
loteprednol etabonate 0.5 % eye 1 drp BOTH EYES BID 06/14/24 06/14/24 History
drops,suspension
metronidazole 500 mg tablet 500 mg PO TID #30 tabs 06/14/24 06/14/24 Rx
oxycodone-acetaminophen 5 mg-325 1 tab PO Q6HPRN PRN pain #10 tabs 06/14/24 06/14/24 Rx
mg tablet (Percocet)
valacyclovir 1 gram tablet 2,000 mg PO BIDPRN PRN cold sores 06/14/24 06/14/24 History
Review of Systems
-
History Source: Patient
Abdomen/GI: Abdominal Pain, Nausea, Vomiting, Constipated and Other (Bloating)
A 10 point review of systems was completed, and was negative except as per HPI.
Physical Exam
Vital Signs
Temp 97.7 F 06/17/24 07:00
Pulse 78 06/17/24 07:51
Resp Rate 16 06/17/24 07:51
Blood pressure 112/80 06/17/24 07:00
SaO2 99 06/17/24 07:51
Body Mass Index (BMI) 25.7
Lab Results / Allergies
06/17/24 07:02
06/17/24 07:02
WBC 7.4 10^3/uL (4.8-10.8) 06/17/24 07:02
Hgb 11.1 g/dL (12.0-16.0) L 06/17/24 07:02
Hct 31.1 % (37.0-47.0) L 06/17/24 07:02
Plt Count 162 10^3/uL (130-400) 06/17/24 07:02
Abs Immat Gran (auto) 0.1 10^3/uL (0-0.05) H 06/14/24 18:31
Neutrophils % 80.9 % (42.2-75.2) H 06/14/24 18:31
Allergy/AdvReac Type Severity Reaction Status Date / Time
levalbuterol HCl Allergy tachycardia Verified 06/14/24 16:06
[From Xopenex]
Physical Exam
General: Well Developed, Well Nourished and No Apparent Distress
GI: Soft, Tender (Upper abdomen-mild to moderate) and Distended (Mild)
Neuro: AO x 3
Psych: Calm
Data Reviewed
-
CT Scan: Image Personally Visualized and interpreted, Report Reviewed by me and Discussed with Patient
Labs: Labs Reviewed by me, Discussed with Physician and Discussed with Patient
Old Records: Reviewed
Assessment / Plan
-
Assessment: 28-year-old female with several days of upper abdominal pain found to have likely acute uncomplicated diverticulitis near the hepatic flexure, pain not improving. Differentials include diverticulitis vs appendagitis vs infectious
colitis vs ischemic colitis.
Plan:
-No need for urgent surgery at this time. Discussed the possibility of a right colectomy should her symptoms worsen.
-Continue IV antibiotics, recommend switching to Zosyn.
-Monitor labs and WBC
-CT abdomen and pelvis ordered for this morning
-Will need eventual colonoscopy as an outpatient but not during admission
-Discussed the above with Dr. Mosqueda and her mother
[2024-06-17] MEDS: ZOFRAN 4 MG IV (11:57)
--- NOTE | 2024-06-17 12:09 | CM ---
CM reviewed chart, patient seen bedside, reports no needs to CM at this time. Patient remains on IV antibiotics. Plan remains likely home no needs.
Plan; home with family when stable.
[2024-06-17 15:00] VITALS: BP 100/69
[2024-06-17] MEDS: COMPAZINE 10 MG IV (16:17)
[2024-06-17 23:34] VITALS: BP 105/52
[2024-06-17] MEDS: D5/0.45%NACL IV (23:42)
[2024-06-18] MEDS: D5/0.45%NACL 1000 IV ×3 (02:40→22:13)
[2024-06-18] MEDS: MORPHINE SULFATE 2 MG IV (04:51)
[2024-06-18] MEDS: FLAGYL 500 MG 100 IV ×3 (05:06→21:05)
[2024-06-18] MEDS: LEVAQUIN 150 IV (07:33)
[2024-06-18 07:51] VITALS: BP 93/59
[2024-06-18 08:17] LABS: Hematocrit 30.9 % (37.0-47.0); Hemoglobin 11.3 g/dL (12.0-16.0); Mean Corp Hgb Conc. 36.6 g/dL (33.0-37.0); Mean Corpuscular Hgb 31.1 pg (27.0-31.0); Mean Corpuscular Volume 85.1 fL (81.0-99.0); Mean Platelet Volume 11.5 fL (7.4-10.4); Platelet Count 166 10^3/uL (130-400); Red Blood Cell Count 3.63 10^6/uL (4.20-5.40); Red Cell Dist. Width 11.6 % (11.5-14.5); White Blood Cell Count 7.6 10^3/uL (4.8-10.8)
[2024-06-18] MEDS: FLOVENT 220 MCG INHALER 4 PUFF INH ×2 (08:31→19:48)
[2024-06-18 08:45] LABS: Blood Urea Nitrogen 3 mg/dl (7-17); Calcium 8.3 mg/dl (8.4-10.2); Carbon Dioxide 26 mmol/L (22-30); Chloride 110 mmol/L (98-107); Estimated Creatinine Clearance 118 ml/min; Glucose 80 mg/dl (70-99); Potassium 3.6 mmol/L (3.5-5.1); Sodium 141 mmol/L (135-145); eGFR > 60.00
[2024-06-18] MEDS: TORADOL 10 MG IV ×2 (08:59→14:58)
--- NOTE | 2024-06-18 09:43 | W.PN.HOSP.TC ---
Today's Communication/Plan
-
see bold
Assessment / Plan
Assessment / Plan
28-year-old female with abdominal pain found to have diverticulitis at which she is apparently at the hepatic flexure with mesenteric inflammation. Treated with oral Levaquin and metronidazole and return to the emergency department with intractable
abdominal pain. She is hemodynamically stable and afebrile. She shows no signs of small bowel obstruction. No leukocytosis noted. She has been admitted for intractable abdominal pain and continued antibiotics parenterally.
Patient seen and examined with MICKEY Donaldson present at bedside for the entirety of the interview and physical exam:
Gen: NAD, AAOx3.
Eyes: EOMI, PERRLA, no scleral icterus.
Neck: supple.
CV: continues to remain RRR, +S1/S2, no m/r/g.
Resp: continues to remain CTAB, no rales, wheezes, or rhonchi.
Abd: continues to remain +BS, soft, RUQ TTP, ND
Skin: No rashes.
Neuro: CN 2-12 intact, non-focal.
Psych: Normal mood and affect.
Abd U/S:
1. No evidence of cholelithiasis, acute cholecystitis, or biliary ductal dilation.
2. No sonographic abnormalities demonstrated.
CT A/P:
1. Pronounced bowel wall thickening and mesenteric inflammatory change adjacent to the hepatic flexure. Possible inflamed diverticulum in the region. Findings most likely represent acute uncomplicated diverticulitis, differential diagnosis includes
infectious and inflammatory colitis.
2. No evidence of intestinal obstruction, nephrolithiasis, hydronephrosis, cholecystitis, or abscess formation.
CT A/P 06/17/24: Thickening of the wall and accompanying stranding about the hepatic flexure of the colon IMPROVED/DECREASED in comparison to recent prior study likely representing resolving diverticulitis versus colitis. No intestinal obstruction,
free air or gross abnormal focal fluid collection. Approximate 3 cm right ovarian simple cyst.
Acute diverticulitis/colitis:
-Leukocytosis has resolved
-cont levaquin/Flagyl
-cont D5 1/2NS
-pain control and antiemetics
-repeat CT A/P with improved findings in the colon at the hepatic flexure representing resolving diverticulitis versus colitis.
-CRS saw in c/s
-advanced to full liquids
FULL/Lovenox
Anticipated Discharge: Within 24 hours
Subjective/Interval History
-
Date of Service: June 18, 2024
Still c/o abd pain. Also c/o lack of appetite.
Objective Data
-
Labs:
Laboratory Results
06/18/24
06:38
WBC 7.6
Hgb 11.3 L
Hct 30.9 L
Plt Count 166
Sodium 141
Potassium 3.6
Chloride 110 H
Carbon Dioxide 26
BUN 3 L
Creatinine 0.6
Glucose 80
Calcium 8.3 L
Vital Signs:
Vital Signs
Temp Pulse Resp BP Pulse Ox
98.2 F 61 18 93/59 98
06/18/24 07:51 06/18/24 07:51 06/18/24 07:51 06/18/24 07:51 06/18/24 07:51
I&O
06/17/24 06/18/24 06/19/24
06:59 06:59 06:59
Intake Total 3630 / 3630 3970 / 3970
Balance 3630 / 3630 3970 / 3970
--- NOTE | 2024-06-18 14:51 | W.PN.CRS1 ---
Today's Communication / Plan
-
LRD.
Assessment/Plan
-
Hepatic flexure diverticulitis.
1. Tolerating fulls without nausea or vomiting. Diet advanced to low residue.
2. WBC still normal.
3. Antibiotics.
4. Disposition per hospitalist when tolerating low residue.
Subjective Data
Subjective Data
Date of Service: June 18, 2024
Still some pain in the right upper quadrant which she describes as 4 out of 10. This is better than it was before. Not much appetite but tolerating fulls without nausea or vomiting.
Objective Data
-
Vital Signs
Temp Pulse Resp BP Pulse Ox
98.2 F 61 18 93/59 98
06/18/24 07:51 06/18/24 07:51 06/18/24 07:51 06/18/24 07:51 06/18/24 07:51
Intake & Output
06/17/24 06/18/24 06/19/24
06:59 06:59 06:59
Intake Total 3630 / 3630 3970 / 3970
Balance 3630 / 3630 3970 / 3970
Intake:
Oral fluids 730 / 730 1320 / 1320
IV fluids (Total) 2550 / 2550 2200 / 2200
IV piggybacks 350 / 350 450 / 450
Other:
Number of approximated MODERATE 3 3
amounts of urine
Lab Results
06/18/24 06:38
06/18/24 06:38
Physical Exam
-
General: No Acute Distress
Chest: Clear
Cardiovascular: Regular Rate & Rhythm
Abdomen: Soft, Non Distended and Tender (Mild right upper quadrant)
[2024-06-18 15:25] VITALS: BP 113/66
[2024-06-18] MEDS: ZOFRAN 4 MG IV (17:27)
[2024-06-18] MEDS: MELATONIN 5 MG PO (22:09)
[2024-06-18 23:46] VITALS: BP 112/68
[2024-06-19] MEDS: TORADOL 10 MG IV ×3 (02:02→22:27)
[2024-06-19] MEDS: MORPHINE SULFATE 2 MG IV ×2 (03:42→23:28)
[2024-06-19] MEDS: D5/0.45%NACL 1000 IV ×3 (05:30→22:15)
[2024-06-19] MEDS: FLAGYL 500 MG 100 IV ×2 (05:30→13:09)
[2024-06-19 07:30] VITALS: BP 116/75
[2024-06-19] MEDS: LEVAQUIN 150 IV (08:05)
[2024-06-19] MEDS: FLOVENT 220 MCG INHALER 4 PUFF INH ×2 (08:08→21:10)
[2024-06-19 08:28] LABS: Hematocrit 31.9 % (37.0-47.0); Hemoglobin 11.3 g/dL (12.0-16.0); Mean Corp Hgb Conc. 35.4 g/dL (33.0-37.0); Mean Corpuscular Hgb 30.7 pg (27.0-31.0); Mean Corpuscular Volume 86.7 fL (81.0-99.0); Platelet Count 164 10^3/uL (130-400); Red Blood Cell Count 3.68 10^6/uL (4.20-5.40); Red Cell Dist. Width 11.7 % (11.5-14.5); White Blood Cell Count 7.8 10^3/uL (4.8-10.8)
[2024-06-19 09:02] LABS: Blood Urea Nitrogen 6 mg/dl (7-17); Calcium 8.3 mg/dl (8.4-10.2); Carbon Dioxide 24 mmol/L (22-30); Chloride 110 mmol/L (98-107); Estimated Creatinine Clearance 118 ml/min; Glucose 86 mg/dl (70-99); Potassium 4.5 mmol/L (3.5-5.1); Sodium 142 mmol/L (135-145); eGFR > 60.00
[2024-06-19] MEDS: ZOFRAN 4 MG IV ×2 (09:47→21:46)
--- NOTE | 2024-06-19 10:51 | W.PN.HOSP.TC ---
Today's Communication/Plan
-
see bold
Assessment / Plan
Assessment / Plan
28-year-old female with abdominal pain found to have diverticulitis at which she is apparently at the hepatic flexure with mesenteric inflammation. Treated with oral Levaquin and metronidazole and return to the emergency department with intractable
abdominal pain. She is hemodynamically stable and afebrile. She shows no signs of small bowel obstruction. No leukocytosis noted. She has been admitted for intractable abdominal pain and continued antibiotics parenterally.
Patient seen and examined with MICKEY Marroquin present at bedside for the entirety of the interview and physical exam:
Gen: NAD, AAOx3.
Eyes: EOMI, PERRLA, no scleral icterus.
Neck: supple.
CV: RRR, +S1/S2, no m/r/g.
Resp: CTAB, no rales, wheezes, or rhonchi.
Abd: +BS, soft, RUQ TTP, ND
Skin: No rashes.
Neuro: CN 2-12 intact, non-focal.
Psych: Normal mood and affect.
Abd U/S:
1. No evidence of cholelithiasis, acute cholecystitis, or biliary ductal dilation.
2. No sonographic abnormalities demonstrated.
CT A/P:
1. Pronounced bowel wall thickening and mesenteric inflammatory change adjacent to the hepatic flexure. Possible inflamed diverticulum in the region. Findings most likely represent acute uncomplicated diverticulitis, differential diagnosis includes
infectious and inflammatory colitis.
2. No evidence of intestinal obstruction, nephrolithiasis, hydronephrosis, cholecystitis, or abscess formation.
CT A/P 06/17/24: Thickening of the wall and accompanying stranding about the hepatic flexure of the colon IMPROVED/DECREASED in comparison to recent prior study likely representing resolving diverticulitis versus colitis. No intestinal obstruction,
free air or gross abnormal focal fluid collection. Approximate 3 cm right ovarian simple cyst.
Acute diverticulitis/colitis:
-Leukocytosis has resolved
-cont levaquin/Flagyl
-cont D5 1/2NS
-pain control and antiemetics
-repeat CT A/P with improved findings in the colon at the hepatic flexure representing resolving diverticulitis versus colitis.
-CRS saw in c/s
-advanced to LR diet but now with vomiting, will c/s GI
FULL/Lovenox
Anticipated Discharge: 24 - 48 hours
Subjective/Interval History
-
Date of Service: June 19, 2024
Patient still with right upper quadrant pain. Since yesterday she has developed worsening anorexia and vomiting with eating.
Objective Data
-
Labs:
Laboratory Results
06/19/24
07:32
WBC 7.8
Hgb 11.3 L
Hct 31.9 L
Plt Count 164
Sodium 142
Potassium 4.5
Chloride 110 H
Carbon Dioxide 24
BUN 6 L
Creatinine 0.5 L
Glucose 86
Calcium 8.3 L
Vital Signs:
Vital Signs
Temp Pulse Resp BP Pulse Ox
98.5 F 77 16 116/75 100
06/19/24 07:30 06/19/24 08:15 06/19/24 08:15 06/19/24 07:30 06/19/24 08:15
I&O
06/18/24 06/19/24 06/20/24
06:59 06:59 06:59
Intake Total 3970 / 3970 2510 / 2510
Balance 3970 / 3970 2510 / 2510
--- NOTE | 2024-06-19 11:37 | CM ---
CM reviewed chart, patient seen bedside. Patient eager to go home to see daughter, reports she did not have the best night last night. CM provided support to patient. Patient requesting a return to work form when ready for discharge. CM will
continue to follow for all discharge planning needs.
Plan; home no needs, requesting return to work from when discharged.
--- NOTE | 2024-06-19 13:53 | CON.GI ---
Addendum entered and electronically signed by Imani Cruz DO 06/19/24 16:21:
The patient was seen and examined by me independently in collaboration with the nurse practitioner.
Past medical history/social history/medications/allergies/family history reviewed.
Lab data and imaging data reviewed.
Marcelle Finn is a 28 y.o. female w/ pmhx EoE c/b esophageal stricture requiring dilation admitted to on 06/14 with abdominal pain found to have hepatic flexure diverticulitis vs. colitis. She was initially sent home from the ER on levaquin and
Flagyl and returned shortly after discharge for persistent pain. CT A/P showed pronounced bowel wall thickening and mesenteric inflammatory change adjacent to the hepatic flexure, possible inflamed diverticulum in the region, most likely
representing acute uncomplicated diverticulitis, ddx includes infectious and inflammatory colitis. Due to intractable pain, repeat CT performed to r/o abscess, instead showing improved findings in the colon at the hepatic flexure representing
resolving diverticulitis vs. colitis. She initially had a leukocytosis, WBC 17 -->7.4, she has remained afebrile and hemodynamically stable. She is currently on zosyn. She was tolerating a low residue diet and had an episode of emesis and persistent
retching, for which GI is consulted.
A/P:
-N/V possibly due to advancing her diet too quickly, agree with going to liquids and seeing how she does overnight
-episode of emesis is not concerning for food impaction
-standing simethicone
-continue zofran
- She reports her EOE is well-controlled on fluticasone, previously on dupixent but struggled with soreness from the injections. She has an EGD scheduled with her GI at [facility] on 07/04. Following eventual discharge, she knows that she will require a
colonoscopy, this can be performed by colorectal surgery who is also seeing her, our GI group, or her GI she sees at [facility]. She prefers to have it done at same time as upcoming EGD, which she will try and push out a few weeks. She will reach out to
[facility] and see if this is possible. If unable to schedule with them, she will let us know and we can set her up for colonoscopy upon discharge.
Original Note:
Consultation
-
Date/Time Consultation Requested: 06/19/24 1150
Date/Time Consultation Performed: 06/19/24 1400
Requesting Provider: Reji Mosqueda MD
Performing Provider: VINEET Orr, Yeimy Cruz DO
Reason for Consultation: anorexia/nausea
Medical History
Chief Complaint / HPI
Chief Complaint: abdominal pain, nausea, vomiting
History of Present Illness:
Pt is 28yo presents with hx eosinophilic esophagitis(prior Dupixent now maintained on Flovent) esophageal stricture with prior dilation, panic disorder(noted during prior food impaction), neurocardiogenic syncope with onset of abdominal pain. She
initially presented with RUQ and epigastric pain after eating chicken and mac and cheese without improvement with pepto or gas X. Labs notable for some drop initially normal 13.4 then in 11 range with stable chemistry except minimal bili
elevation of 1.7. Pt compete US no cholelithiasis, acute cholecystitis or biliary ductal dilatation. She also completed CT 06/14 with wall thickening and mesenteric inflammation adjacent to hepatic flexure with possible inflamed diverticulum
in region vs infectious/inflammatory colitis. CT was repeated 06/17 with continued pain with improvement in inflammation and simple right ovarian cyst. Asked to for persistent pain and noted with nausea and vomiting with attempting diet. She
admits on 4 early AM she had recurrent severe pain then noted vomiting small volume non blood emesis. Pain currently 6/10 and was 10/10 on admission.
Pt admits to some diarrhea noted after oral contrast but denies any current odynophagia, dysphagia, GERD, wt loss, constipation or rectal bleeding. Hx multiple EGD's and due 07/04 at [place] for follow up. No prior diverticulitis or colonoscopy in
past. No recent travel, abx or sick contact.
Past Medical History
Past Medical History: Psychiatric (panic attacks) and Other (EOE, laryngeal dyskinesia, neurocardiogenic syncope )
Past Surgical History: Appendectomy and Tonsilectomy
Social History
Tobacco: Non-Smoker
Alcohol: Occasional
Drug: None
Personal: Other (pavithraancee)
Living: With Family
Family History
Family History: Other (father with GERD, grandparents with diverticulitis/colon CA, cousin with crohns )
Allergies / Home Medications
Allergy/AdvReac Type Severity Reaction Status Date / Time
levalbuterol HCl Allergy tachycardia Verified 06/14/24 16:06
[From Xopenex]
�Medication �Instructions �Recorded
albuterol sulfate 90 mcg/actuation 1 puff inhalation R Q4HPRN PRN sob 04/26/21
aerosol inhaler
fluticasone propionate 220 4 puff inhalation R BID 06/14/24
mcg/actuation HFA aerosol inhaler
levofloxacin 750 mg tablet 750 mg PO DAILY 10 days #10 tabs 06/14/24
loteprednol etabonate 0.5 % eye 1 drp BOTH EYES BID 06/14/24
drops,suspension
metronidazole 500 mg tablet 500 mg PO TID #30 tabs 06/14/24
oxycodone-acetaminophen 5 mg-325 1 tab PO Q6HPRN PRN pain #10 tabs 06/14/24
mg tablet (Percocet)
valacyclovir 1 gram tablet 2,000 mg PO BIDPRN PRN cold sores 06/14/24
Review of Systems
-
History Source: Patient
Constitutional: Reports No Symptoms
EENT: Reports No Symptoms
Respiratory: Reports No Symptoms
Cardiac: Reports No Symptoms
Abdomen/GI: Reports Abdominal Pain, Nausea, Vomiting and Diarrhea (after CT contrast )
: Reports No Symptoms
Musculoskeletal: Reports No Symptoms
Skin: Reports No Symptoms
Neurological: Reports No Symptoms
Endocrine: Reports No Symptoms
Hematologic/Lymphatic: Reports No Symptoms
Vital Signs
Temp Pulse Resp BP Pulse Ox
98.5 F 77 16 116/75 100
06/19/24 07:30 06/19/24 08:15 06/19/24 08:15 06/19/24 07:30 06/19/24 08:15
Physical Exam
Exam
General: Well Developed, Well Nourished and No Apparent Distress
HEENT: Normocephalic, Anicteric and Moist Mucous Membranes
Respiratory: Clear
Cardiac: Regular Rhythm
GI: Soft, Tender (RUQ ) and Distended (mild )
Skin: Warm and Dry
Neuro: Awake, Alert and AO x 3
Psych: Calm
Results
WBC 7.8 10^3/uL (4.8-10.8) 06/19/24 07:32
Hgb 11.3 g/dL (12.0-16.0) L 06/19/24 07:32
Hct 31.9 % (37.0-47.0) L 06/19/24 07:32
MCV 86.7 fL (81.0-99.0) 06/19/24 07:32
Plt Count 164 10^3/uL (130-400) 06/19/24 07:32
Absolute Neuts (auto) 12.4 10^3/uL (1.4-6.5) H 06/14/24 18:31
Sodium 142 mmol/L (135-145) 06/19/24 07:32
Potassium 4.5 mmol/L (3.5-5.1) 06/19/24 07:32
Chloride 110 mmol/L (98-107) H 06/19/24 07:32
Carbon Dioxide 24 mmol/L (22-30) 06/19/24 07:32
BUN 6 mg/dl (7-17) L 06/19/24 07:32
Creatinine 0.5 mg/dL (0.6-1.0) L 06/19/24 07:32
Calcium 8.3 mg/dl (8.4-10.2) L 06/19/24 07:32
Total Bilirubin 1.7 mg/dl (0.2-1.3) H 06/14/24 18:31
AST 24 U/L (14-36) 06/14/24 18:31
ALT 26 U/L (0-35) 06/14/24 18:31
Alkaline Phosphatase 55 U/L (38-126) 06/14/24 18:31
Diagnostic Image Results:
06/14/24 US Abdomen Complete/Upper
1. No evidence of cholelithiasis, acute cholecystitis, or biliary ductal dilation.
2. No sonographic abnormalities demonstrated.
06/14/24 CT Abd/pelvis W Iv Cont
1. Pronounced bowel wall thickening and mesenteric inflammatory change adjacent to the hepatic flexure. Possible inflamed diverticulum in the region. Findings most likely represent acute uncomplicated diverticulitis, differential diagnosis includes
infectious and inflammatory colitis.
2. No evidence of intestinal obstruction, nephrolithiasis, hydronephrosis, cholecystitis, or abscess formation.
06/17/24 CT Abd/pel W Iv And Oral Contr
Thickening of the wall and accompanying stranding about the hepatic flexure of the colon IMPROVED/DECREASED in comparison to recent prior study likely representing resolving diverticulitis versus colitis. No intestinal obstruction, free air or gross
abnormal focal fluid collection.
Approximate 3 cm right ovarian simple cyst
Prior GI Procedures:
hx multiple EGD's with food impaction at and [place]-- last at [address] p[address]
- Normal antrum. This was biopsied.
- Gastric mucosal abnormality in the gastric body
characterized by erythema. This was biopsied.
- Normal cardia and gastric fundus.
- Z-line regular, 41 cm from the incisors. This was
biopsied.
- Benign-appearing esophageal stricture. Dilated.
Colonoscopy: none
Assessment / Plan
-
Pt is 28yo presents with hx eosinophilic esophagitis(prior Dupixent now maintained on Flovent) esophageal stricture with prior dilation, panic disorder(noted during prior food impaction), neurocardiogenic syncope with onset of abdominal pain. She
initially presented with RUQ and epigastric pain after eating chicken and mac and cheese without improvement with pepto or gas X. Labs notable for some drop initially normal 13.4 then in 11 range with stable chemistry except minimal bili
elevation of 1.7. Pt compete US no cholelithiasis, acute cholecystitis or biliary ductal dilatation. She also completed CT 06/14 with wall thickening and mesenteric inflammation adjacent to hepatic flexure with possible inflamed diverticulum
in region vs infectious/inflammatory colitis. CT was repeated 06/17 with continued pain with improvement in inflammation and simple right ovarian cyst. Asked to for persistent pain and noted with nausea and vomiting with attempting diet. She
admits on 06/19 early AM she had recurrent severe pain then noted vomiting small volume non blood emesis.
-RUQ pain
-CT concern for hepatic flexure/possible inflamed diverticulum vs colitis
-hx EOE on standing flovent follows at [facility]
-mild bili elevation on admission
-mild anemia after hydration
-esophageal stricture with prior dilation
-panic disorder with prior food impactions
PLAN:
etiology of symptoms related to Right sided diverticulitis, colitis vs other
pt remains on Levaquin and Flagyl
still with pain and vomiting
cont pain control per hospitalist
advised to decrease to clear diet advance as tolerated in AM
trial standing Simethicone dosing
discussed with patient need for colonoscopy 6-8 weeks -- she is due for EGD at [place] in 2 weeks -- consider changing date to EGD/colon in few weeks vs proceeding locally for colonoscopy
will repeat LFT's in am with minimal bili elevation to ensure no increased since admission
cont Flovent with hx EOE-- OP follow up with [place] for EGD as planned
-
-
Thank you for consultation and allowing me to participate in the patient's care. Please call the container repairer GI physician during the after hours with any questions or concerns.
[2024-06-19 15:00] VITALS: BP 109/74
[2024-06-19] MEDS: MYLICON 80 MG PO ×2 (15:08→21:24)
--- NOTE | 2024-06-19 16:53 | W.PN.UPDATE ---
Update Note
Progress Note Update
Case discussed with Dr. Cruz over the phone. Will transition to PO Augmentin to avoid potential GI SEs from Levaquin.
[2024-06-19 23:49] VITALS: BP 120/78
[2024-06-20] MEDS: MYLICON PO (03:41)
[2024-06-20] MEDS: TORADOL 10 MG IV ×2 (05:18→10:17)
[2024-06-20] MEDS: D5/0.45%NACL 1000 IV (06:19)
[2024-06-20 07:19] LABS: ALT (SGPT) 18 U/L (0-35); AST (SGOT) 23 U/L (14-36); Alkaline Phosphatase 39 U/L (38-126); Direct Bilirubin 0.1 mg/dl (0.0-0.4); Total Bilirubin 0.6 mg/dl (0.2-1.3); Total Protein 5.2 g/dl (6.3-8.2)
--- NOTE | 2024-06-20 07:20 | W.PN.GI.CBS2 ---
Addendum entered and electronically signed by VINEET Pope 06/20/24 10:37:
pt and family updated again. cont clears advance as tolerated. Reviewed with patient should not be discharged until she tolerate diet
Addendum entered and electronically signed by Imani Cruz DO 06/20/24 09:40:
The patient was seen and examined by me independently in collaboration with the nurse practitioner.
Past medical history/social history/medications/allergies/family history reviewed.
Lab data and imaging data reviewed.
Patient initially seem to be improving when seen yesterday afternoon, however, this morning reports a having recurrent bilious emesis overnight, repeated retching and terrible RUQ abdominal pain. She had little improvement with toradol, requiring
morphine with symptomatic relief. LFTs repeated this morning were normal, initially had a slightly elevated tbili which normalized. Overall, her clinical picture is somewhat atypical of diverticulitis/colitis and her symptoms do seem changed
compared to her presenting symptoms. That said, we throughout reviewed her CT scans and the inflammation is definitely coming from the colon. There is no evidence of gallbladder thickening, pericholecystic fluid, sludge or stones to suggest
cholecystitis. Given acute pathology in the colon, I feel ordering a CCK-HIDA is low yield.
Recommending continuing with supportive care. Perhaps the antibiotics were playing a role in her nausea/vomiting. She was changed to PO augmentin today, will monitor her symptoms for clinical improvement. Keep on liquids, if tolerating, do not
advance given her N/V. Simethicone prn. Agree with wilman as well.
Original Note:
Today's Communication / Plan
-
etiology of symptoms related to Right sided diverticulitis, colitis vs other-- rule out biliary/SB pathology but not vomiting large volumes
still with nausea/vomiting (small amt bile) and RUQ pain overnight and this am
no improvement with medication changes on adding oral Augmentin and simethicone
await LFT's
if LFT increased consider HIDA scan -- GB appears normal on prior CT and US done on admission
change simethicone to PRN and add Bentyl PRN as pain is crampy in nature
cont pain control per hospitalist
clear diet as tolerated- cannot advance with continued symptoms
patient will need for colonoscopy 6-8 weeks -- she is due for EGD at [place] in 2 weeks -- consider changing date to EGD/colon in few weeks vs proceeding locally for colonoscopy
cont Flovent with hx EOE-- OP follow up with [place] for EGD as planned
updated mother at bedside
Assessment / Plan
-
Pt is 28yo presents with hx eosinophilic esophagitis(prior Dupixent now maintained on Flovent) esophageal stricture with prior dilation, panic disorder(noted during prior food impaction), neurocardiogenic syncope with onset of abdominal pain. She
initially presented with RUQ and epigastric pain after eating chicken and mac and cheese without improvement with pepto or gas X. Labs notable for some drop initially normal 13.4 then in 11 range with stable chemistry except minimal bili
elevation of 1.7. Pt compete US no cholelithiasis, acute cholecystitis or biliary ductal dilatation. She also completed CT 06/14 with wall thickening and mesenteric inflammation adjacent to hepatic flexure with possible inflamed diverticulum
in region vs infectious/inflammatory colitis. CT was repeated 06/17 with continued pain with improvement in inflammation and simple right ovarian cyst. Asked to for persistent pain and noted with nausea and vomiting with attempting diet. She
admits on 42 early AM she had recurrent severe pain then noted vomiting small volume non blood emesis.
-RUQ pain
-CT concern for hepatic flexure/possible inflamed diverticulum vs colitis
-hx EOE on standing flovent follows at [facility]
-mild bili elevation on admission
-mild anemia after hydration
-esophageal stricture with prior dilation
-panic disorder with prior food impactions
PLAN:
etiology of symptoms related to Right sided diverticulitis, colitis vs other-- rule out biliary/SB pathology but not vomiting large volumes
still with nausea/vomiting (small amt bile) and RUQ pain overnight and this am
no improvement with medication changes on adding oral Augmentin and simethicone
await LFT's
if LFT increased consider HIDA scan -- GB appears normal on prior CT and US done on admission
change simethicone to PRN and add Bentyl PRN as pain is crampy in nature
cont pain control per hospitalist
clear diet as tolerated- cannot advance with continued symptoms
patient will need for colonoscopy 6-8 weeks -- she is due for EGD at [place] in 2 weeks -- consider changing date to EGD/colon in few weeks vs proceeding locally for colonoscopy
cont Flovent with hx EOE-- OP follow up with [place] for EGD as planned
updated mother at bedside
Subjective
Subjective
Date of Service: June 20, 2024
still with some vomiting small amount with dry heaves and RUQ pain overnight
Objective
Data Reviewed
Laboratory Data:
Laboratory Results
06/19/24 07:32
06/19/24 07:32
Laboratory Results
Total Bilirubin 0.6 mg/dl (0.2-1.3) 06/20/24 06:40
AST 23 U/L (14-36) 06/20/24 06:40
ALT 18 U/L (0-35) 06/20/24 06:40
Alkaline Phosphatase 39 U/L (38-126) 06/20/24 06:40
Vital Signs and I&O:
Vital Signs
Temp Pulse Resp BP Pulse Ox
98.1 F 57 20 120/78 97
06/19/24 23:49 06/19/24 23:49 06/19/24 23:49 06/19/24 23:49 06/19/24 23:49
I&O
06/19/24 06/20/24 06/21/24
06:59 06:59 06:59
Intake Total 0 / 0 3290 / 3290
Balance 2510 / 2510 3290 / 3290
Physical Exam
Physical Exam
HEENT: Anicteric and Moist mucous membranes
Cardiology: Normal Sinus Rhythm
Pulmonary: Clear
GI: Soft, Distended (minimal improved per patient ) and Tender (RUQ with mild guarding)
Extremities: No Edema
Neuro: Non Focal
[2024-06-20 07:30] VITALS: BP 114/72
[2024-06-20] MEDS: FLOVENT 220 MCG INHALER 4 PUFF INH ×2 (07:56→20:09)
[2024-06-20] MEDS: AUGMENTIN 875 MG/125 MG 1 TABLET PO ×2 (08:37→20:34)
[2024-06-20] MEDS: ZOFRAN 4 MG IV ×2 (09:07→21:35)
--- NOTE | 2024-06-20 10:14 | W.PN.HOSP.TC ---
Today's Communication/Plan
-
see bold
Assessment / Plan
Assessment / Plan
28-year-old female with abdominal pain found to have diverticulitis at which she is apparently at the hepatic flexure with mesenteric inflammation. Treated with oral Levaquin and metronidazole and return to the emergency department with intractable
abdominal pain. She is hemodynamically stable and afebrile. She shows no signs of small bowel obstruction. No leukocytosis noted. She has been admitted for intractable abdominal pain and continued antibiotics parenterally.
Patient seen and examined with MICKEY Reno present at bedside for the entirety of the interview and physical exam:
Gen: NAD, AAOx3.
Eyes: EOMI, PERRLA, no scleral icterus.
Neck: supple.
CV: remains RRR, +S1/S2, no m/r/g.
Resp: remains CTAB, no rales, wheezes, or rhonchi.
Abd: +BS, soft, RUQ TTP with guarding, ND
Skin: No rashes.
Neuro: CN 2-12 intact, non-focal.
Psych: Normal mood and affect.
Abd U/S:
1. No evidence of cholelithiasis, acute cholecystitis, or biliary ductal dilation.
2. No sonographic abnormalities demonstrated.
CT A/P:
1. Pronounced bowel wall thickening and mesenteric inflammatory change adjacent to the hepatic flexure. Possible inflamed diverticulum in the region. Findings most likely represent acute uncomplicated diverticulitis, differential diagnosis includes
infectious and inflammatory colitis.
2. No evidence of intestinal obstruction, nephrolithiasis, hydronephrosis, cholecystitis, or abscess formation.
CT A/P 06/17/24: Thickening of the wall and accompanying stranding about the hepatic flexure of the colon IMPROVED/DECREASED in comparison to recent prior study likely representing resolving diverticulitis versus colitis. No intestinal obstruction,
free air or gross abnormal focal fluid collection. Approximate 3 cm right ovarian simple cyst.
Acute diverticulitis/colitis:
-Leukocytosis has resolved
-was on levaquin/Flagyl, transitioned to Augmentin today
-cont D5 1/2NS
-pain control and antiemetics
-repeat CT A/P with improved findings in the colon at the hepatic flexure representing resolving diverticulitis versus colitis.
-CRS saw in c/s
-advanced to LR diet then had vomiting
-GI following. Case discussed with Dr. Cruz today. She reviewed her CT scans with Dr. Garrett. No concern for GB disease at this time. LFTs normal.
-clears for now
FULL/Lovenox
Anticipated Discharge: Within 24 hours
Subjective/Interval History
-
Date of Service: June 20, 2024
Patient states that she is having abdominal spasms leading to vomiting when she eats. Still complains of right upper quadrant pain and epigastric pain.
Objective Data
-
Labs:
Laboratory Results
06/20/24
06:40
Total Bilirubin 0.6
AST 23
ALT 18
Alkaline Phosphatase 39
Vital Signs:
Vital Signs
Temp Pulse Resp BP Pulse Ox
98.5 F 70 16 114/72 99
06/20/24 07:30 06/20/24 08:04 06/20/24 08:04 06/20/24 07:30 06/20/24 08:04
I&O
06/19/24 06/20/24 06/21/24
06:59 06:59 06:59
Intake Total 2510 / 2510 3290 / 3290
Balance 2510 / 2510 3290 / 3290
--- NOTE | 2024-06-20 11:46 | W.PN.CRS1 ---
Today's Communication / Plan
-
diet advancement
Assessment/Plan
-
Hepatic flexure diverticulitis.
1. On a clear liquid diet per GI. Advance as tolerating. No gallbladder disease noted on CT (GI discussed with Tami).
2. WBC still normal (yesterday)
3. Antibiotics.
4. Eventual colonoscopy as outpatient.
Subjective Data
Subjective Data
Date of Service: June 20, 2024
Patient states she isn't feeling as well today. She had some nausea and RUQ pain overnight.
Objective Data
-
Vital Signs
Temp Pulse Resp BP Pulse Ox
98.5 F 70 16 114/72 99
06/20/24 07:30 06/20/24 08:04 06/20/24 08:04 06/20/24 07:30 06/20/24 08:04
Intake & Output
06/19/24 06/20/24 06/21/24
06:59 06:59 06:59
Intake Total 2510 / 2510 3290 / 3290
Balance 2510 / 2510 3290 / 3290
Intake:
Oral fluids 960 / 960 2040 / 2040
IV fluids (Total) 1300 / 1300 1250 / 1250
IV piggybacks 250 / 250
Other:
Number of approximated MODERATE 5 4
amounts of urine
Lab Results
06/19/24 07:32
06/19/24 07:32
Physical Exam
-
General: No Acute Distress and AOx3
Abdomen: Soft, Non Distended and Tender (RUQ)
[2024-06-20 14:03] VITALS: BMI 25.7
[2024-06-20 15:00] VITALS: BP 103/61
--- NOTE | 2024-06-20 15:39 | W.PN.UPDATE ---
Update Note
Progress Note Update
VIOLET neg reviewed results with patient. Feeling better tolerating some clears. To advance to low residue dinner if improving. Will make NPO in AM til seen in case still with symptoms and consider EGD but is due for OP EGD in 2 week at [place] for
follow up for EOE.
[2024-06-20] MEDS: D5/0.45%NACL IV (18:18)
[2024-06-20] MEDS: BENTYL 10 MG PO (21:36)
[2024-06-20] MEDS: MELATONIN 5 MG PO (22:35)
[2024-06-20 23:00] VITALS: BP 121/74
--- NOTE | 2024-06-21 03:05 | PTCARENOTE ---
AAO x 4. VSS. Patient with nausea and midline to RUQ abdominal cramping and/or discomfort. Emesis x 2. PRN IV Zofran administered followed by administration of PRN Bentyl. Patient states that symptoms have improved. NPO at midnight for EGD.
Independent in the room. All patient needs met. Bed in lowest position. Call bunn and personal belongings within reach.
[2024-06-21 07:30] VITALS: BP 111/62
[2024-06-21] MEDS: FLOVENT 220 MCG INHALER 4 PUFF INH (07:53)
[2024-06-21] MEDS: AUGMENTIN 875 MG/125 MG 1 TABLET PO (09:19)
[2024-06-21 09:53] LABS: HCG, Urine Qualitative Screen Negative
--- NOTE | 2024-06-21 11:01 | W.PN.HOSP.TC ---
Today's Communication/Plan
-
d/c
Assessment / Plan
Assessment / Plan
28-year-old female with abdominal pain found to have diverticulitis at which she is apparently at the hepatic flexure with mesenteric inflammation. Treated with oral Levaquin and metronidazole and return to the emergency department with intractable
abdominal pain. She is hemodynamically stable and afebrile. She shows no signs of small bowel obstruction. No leukocytosis noted. She has been admitted for intractable abdominal pain and continued antibiotics parenterally.
Patient seen and examined with MICKEY Reno present at bedside for the entirety of the interview and physical exam:
Gen: NAD, AAOx3.
Eyes: EOMI, PERRLA, no scleral icterus.
Neck: supple.
CV: continues to remain RRR, +S1/S2, no m/r/g.
Resp: CTAB anteriorly, no rales, wheezes, or rhonchi.
Abd: +BS, soft, NT, ND
Skin: No rashes.
Neuro: CN 2-12 intact, non-focal.
Psych: Normal mood and affect.
Abd U/S:
1. No evidence of cholelithiasis, acute cholecystitis, or biliary ductal dilation.
2. No sonographic abnormalities demonstrated.
CT A/P:
1. Pronounced bowel wall thickening and mesenteric inflammatory change adjacent to the hepatic flexure. Possible inflamed diverticulum in the region. Findings most likely represent acute uncomplicated diverticulitis, differential diagnosis includes
infectious and inflammatory colitis.
2. No evidence of intestinal obstruction, nephrolithiasis, hydronephrosis, cholecystitis, or abscess formation.
CT A/P 06/17/24: Thickening of the wall and accompanying stranding about the hepatic flexure of the colon IMPROVED/DECREASED in comparison to recent prior study likely representing resolving diverticulitis versus colitis. No intestinal obstruction,
free air or gross abnormal focal fluid collection. Approximate 3 cm right ovarian simple cyst.
HIDA 06/20/24: No evidence for cystic duct obstruction. No evidence for common bile duct obstruction.
EUS 06/21/24: Esophageal mucosal changes secondary to eosinophilic
esophagitis.
- Bilious gastric fluid.
- Normal duodenal bulb, first portion of the duodenum
and second portion of the duodenum.
- No specimens collected.
Acute diverticulitis/colitis:
-Leukocytosis has resolved
-was on levaquin/Flagyl, transitioned to Augmentin 06/20/24, last dose will be 06/22/24AM
-s/p IVFs with D5 1/2NS
-repeat CT A/P with improved findings in the colon at the hepatic flexure representing resolving diverticulitis versus colitis.
-CRS saw in c/s
-advanced to LR diet then had vomiting and diet reduced to clears
-GI following
-Dr. Cruz today reviewed the patient's imaging with Dr. Garrett on 06/20/24. No concern for GB disease at that time. LFTs normal.
-HIDA NEG as above
-EGD today as above
-case discussed with GI, medically cleared for d/c
- Will complete 7 days of antibiotics considering rapid improvement on imaging of diverticulitis in the setting of the possibility that the patient's nausea/anorexia and vomiting is related to side effects of antibiotics.
FULL/Lovenox
Total time spent on d/c = 36 min. This included today's physical exam, progress note, review of laboratory and diagnostic data, preparation of discharge documents and prescriptions, and discussions about the pt's hospital course and discharge plan
with the patient and other front office medical assistant involved in the patient's care.
Anticipated Discharge: Today
Subjective/Interval History
-
Date of Service: June 21, 2024
No new complaints. Currently denies abdominal pain.
Objective Data
-
Vital Signs:
Vital Signs
Temp Pulse Resp BP Pulse Ox
98.3 F 74 16 111/62 97
06/21/24 07:30 06/21/24 08:00 06/21/24 08:00 06/21/24 07:30 06/21/24 08:00
I&O
06/20/24 06/21/24 06/22/24
06:59 06:59 06:59
Intake Total 3290 / 3290 840 / 840
Output Total
Balance 3290 / 3290 838 / 838
[2024-06-21] MEDS: CARAFATE SUSPENSION 1 GM PO (12:49)
--- NOTE | 2024-06-21 13:49 | W.DCSUMMARY ---
Discharge Summary
Discharge Data
Date of Admission: 06/14/24
Date of Discharge: 06/21/24
-
Pending Results: No
Hospital Course
Primary diagnoses:
Acute diverticulitis
Likely antibiotic associated nausea and vomiting
Secondary diagnoses:
h/o eosinophilic esophagitis
Consultants:
Gastroenterology
Colorectal surgery
Imaging:
Abd U/S:
1. No evidence of cholelithiasis, acute cholecystitis, or biliary ductal dilation.
2. No sonographic abnormalities demonstrated.
CT A/P:
1. Pronounced bowel wall thickening and mesenteric inflammatory change adjacent to the hepatic flexure. Possible inflamed diverticulum in the region. Findings most likely represent acute uncomplicated diverticulitis, differential diagnosis includes
infectious and inflammatory colitis.
2. No evidence of intestinal obstruction, nephrolithiasis, hydronephrosis, cholecystitis, or abscess formation.
CT A/P 06/17/24: Thickening of the wall and accompanying stranding about the hepatic flexure of the colon IMPROVED/DECREASED in comparison to recent prior study likely representing resolving diverticulitis versus colitis. No intestinal obstruction,
free air or gross abnormal focal fluid collection. Approximate 3 cm right ovarian simple cyst.
HIDA 06/20/24: No evidence for cystic duct obstruction. No evidence for common bile duct obstruction.
EGD 06/21/24: Esophageal mucosal changes secondary to eosinophilic esophagitis. Bilious gastric fluid. Normal duodenal bulb, first portion of the duodenum and second portion of the duodenum. No specimens collected.
Hospital course: 28-year-old female who presented with a chief complaint of abdominal pain as outlined in the H&P done on admission. Patient had a CT scan of the abdomen pelvis as above and was started on IV Levaquin and Flagyl. She had nausea and
vomiting and was started on D5 half-normal saline. She was seen consultation by colorectal surgery. She had a repeat CT A/P with improved findings in the colon at the hepatic flexure representing resolving diverticulitis versus colitis. Patient
was advanced to a low residue diet and then had vomiting and her diet was reduced to clears. Patient was seen in consultation by GI. Dr. Cruz reviewed the patient's imaging with Dr. Garrett on 06/20/24 and he had no concern for gallbladder
disease at that time. Liver function tests normal. The patient had a negative HIDA scan as above. The patient had an EGD that was unremarkable as above. The patient was transitioned to Augmentin 06/20/24, last dose will be 06/22/24AM. Her
leukocytosis resolved. The case discussed with GI on the day of discharge and the patient was medically cleared for discharge. She Will complete 7 days of antibiotics considering rapid improvement on imaging of diverticulitis in the setting of the
possibility that the patient's nausea/anorexia and vomiting is related to side effects of antibiotics.
Discharge Plan
-
Patient Disposition: Home (Routine Discharge)
Discharge Diagnosis/Procedures: Acute diverticulitis
Condition: Good
Diet: Low Residue
Activity: No restrictions
Driving Restrictions: As prior to admission
Bathing Restrictions: None
Referrals:
Cesar Cuevas MD [Active] - (will need follow up colonoscopy in 6-8 week at [facility], with Dr. Gaytan or Dr. Cuevas-- call to arrange )
Yamileth Carson CRNP [Family Provider] - in less than 1 week
Prescriptions:
New
sucralfate 100 mg/mL Suspension
1 g PO Q6 Qty: 1000 0RF
dicyclomine 10 mg Capsule
10 mg PO QIDPRN PRN (Reason: crampy abdominal pain) Qty: 20 0RF
amoxicillin-pot clavulanate 875-125 mg Tablet
1 tab PO Q12 Qty: 2 0RF
simethicone 80 mg Tablet,Chewable
80 mg PO Q6H PRN (Reason: bloating/gassiness) Qty: 0 0RF
oxycodone-acetaminophen [Percocet] 5-325 mg tablet
1 tab PO Q6H PRN (Reason: severe pain) Qty: 7 0RF
Continued
albuterol sulfate 1 PUFF HFA aerosol inhaler
1 puff inhalation R Q4HPRN PRN (Reason: sob)
valacyclovir 1 gram Tablet
2,000 mg PO BIDPRN PRN (Reason: cold sores)
fluticasone propionate 220 mcg/actuation Hfa Aerosol Inhaler
4 puff INHALATION R BID
loteprednol etabonate 0.5 % Drops,Suspension
1 drp BOTH EYES BID
Discontinued
levofloxacin 750 mg tablet
750 mg PO DAILY 10 Days Qty: 10 0RF
metronidazole 500 mg tablet
500 mg PO TID Qty: 30 0RF
oxycodone-acetaminophen [Percocet] 5-325 mg tablet
1 tab PO Q6HPRN PRN (Reason: pain) Qty: 10 0RF
Discharge Orders:
Discharge Patient (As Directed); Ordered 06/21/24
Ordered By: Aaron Mosqueda
Discharge Date and Time
Print Language: MALTESE
--- NOTE | 2024-06-21 13:50 | CM ---
CM reviewed chart, patient for discharge today, home no needs. CM will continue to follow for all discharge planning needs.
Plan; home no needs.
== END 2024-06-21 14:02 | disposition home or self-care (01) | DRG 392 ==
LOC: 4 WEST ACU 22:27
PROVIDERS: Nurse Practitioner Adult Health; Physician Assistant; ADMITTING PHYSICIAN Internal Medicine; ATTENDING PHYSICIAN Internal Medicine; CONSULT PHYSICIAN Internal Medicine; CONSULT PHYSICIAN Surgery; EMERGENCY PHYSICIAN Emergency Medicine; FAMILY PHYSICIAN Nurse Practitioner Adult Health
PROC: 0DJ08ZZ Inspection of Upper Intestinal Tract, Via Natural or Artificial Opening Endoscopic (ICD-10-PCS; 2024-06-21)
DX: K57.32 Diverticulitis of large intestine without perforation or abscess without bleeding (principal); K52.9 Noninfective gastroenteritis and colitis, unspecified; F41.0 Panic disorder [episodic paroxysmal anxiety]; K22.2 Esophageal obstruction; G43.A0 Cyclical vomiting, in migraine, not intractable; K20.0 Eosinophilic esophagitis; Z80.0 Family history of malignant neoplasm of digestive organs; Z90.49 Acquired absence of other specified parts of digestive tract
CPT/HCPCS: 74177; 78226; 80048; 80053; 80076; 81025; 83605; 85025; 85027; 94640; 96361; 96365; 96375; 96376; 99284; A9537; Q9967

== ENCOUNTER 2025-01-17 09:15 | Outpatient (RCR) | payer OTHER, BC, SELFPAY | END 2025-01-17 23:59 | disposition home or self-care (01) | LOC: RPT 09:15 | PROVIDERS: ATTENDING PHYSICIAN Registered Nurse | DX: M62.838 Other muscle spasm (principal); M62.830 Muscle spasm of back; Z73.6 Limitation of activities due to disability; M54.2 Cervicalgia; M54.50 Low back pain, unspecified; V49.40XD Driver injured in collision with unspecified motor vehicles in traffic accident, subsequent encounter | CPT/HCPCS: 97010; 97110; 97140; 97162 ==

== ENCOUNTER 2025-02-10 10:22 | Outpatient (RCR) | payer OTHER, BC, SELFPAY | END 2025-02-10 23:59 | disposition home or self-care (01) | LOC: RPT 10:22 | PROVIDERS: ATTENDING PHYSICIAN Registered Nurse | DX: M62.838 Other muscle spasm (principal); M62.830 Muscle spasm of back; Z73.6 Limitation of activities due to disability; M54.2 Cervicalgia; M54.50 Low back pain, unspecified; V49.40XD Driver injured in collision with unspecified motor vehicles in traffic accident, subsequent encounter | CPT/HCPCS: 97010; 97110; 97140 ==

== ENCOUNTER 2025-03-04 07:01 | Outpatient (RCR) | payer OTHER, BC, SELFPAY | END 2025-03-18 23:59 | disposition home or self-care (01) | LOC: RPT 07:01 | PROVIDERS: ATTENDING PHYSICIAN Registered Nurse | DX: M62.838 Other muscle spasm (principal); M62.830 Muscle spasm of back; Z73.6 Limitation of activities due to disability; M54.2 Cervicalgia; M54.50 Low back pain, unspecified; V49.40XD Driver injured in collision with unspecified motor vehicles in traffic accident, subsequent encounter | CPT/HCPCS: 97010; 97110; 97140 ==

== ENCOUNTER → 2025-03-15 12:33 | Outpatient (REF) | payer BC, SELFPAY | LOC: PAVMRI 12:33 | PROVIDERS: ATTENDING PHYSICIAN Registered Nurse | DX: M54.50 Low back pain, unspecified (principal) | CPT/HCPCS: 72148 ==